=== PATIENT | female | born 1950 | race Caucasian/White ===

== ENCOUNTER 2016-07-06 07:23 | Day surgery (SDC) | payer MEDICARE, BC ==
[~2016-07-06 07:23] MED LIST: RINGERS SOLUTION,LACTATED 1,000 ML IV PRN
--- OUTSIDE RECORDS SUMMARY | 2016-07-06 07:27 | XMS REPORT | Continuity of Care Document ---
:1950 Author Organization [facility] ([facility]) Address [address] [place] [address] Phone [phone] Care Team Providers Name Role Phone Juanito Clayton Brandi Primary Care Provider [phone] Source Comments This disclosure is being made pursuant to the Care Everywhere program, applicable federal and state laws, and may not contain all informaitonavailable regarding this patient.[facility] ([facility]) Active Allergies and Adverse Reactions Not on File Current Medications Not on file Active Problems Not on file Social History Tobacco Use Types Packs/Day Years Used Date Never Assessed Plan of Care Health Maintenance Due Date Last Done Comments HCV Screening 1950 Hepatitis B Vaccine (1 of 3 - Primary Series) 1950 Tdap Vaccine 1960 Lipid Disorder Screening 08/30/1967 Td Vaccine 08/30/1967 Mammogram 1989 Colonoscopy 1999 Zoster Vaccine 2009 Osteoporosis Screening (DXA Bone Density) 2014 Pneumococcal Vaccine (1 of 2 - PCV13) 2014 Influenza Vaccine: Seasonal (#1) 12/28/2015 Results from Last 3 Months Not on file
[2016-07-06] MEDS ORDERED: RINGERS SOLUTION,LACTATED 1,000 ML IV ONE ×2 (08:13→09:12)
[2016-07-06 10:06] VITALS: BP 108/67
--- NOTE | 2016-07-06 19:38 | OR ---
Operative Report - Dictated Report Narrative: OPERATIVE REPORT DATE OF OPERATION: 07/06/2016 PREOPERATIVE DIAGNOSIS: History of colon polyp (type unknown) POSTOPERATIVE DIAGNOSIS: Diverticulosis OPERATION: Colonoscopy SURGEON: Ruperto Bailey MD ANESTHESIA: SOO Hills CRNA INDICATIONS FOR PROCEDURE: The patient is a 65-year-old female referred by Dr. Serrano. She had a colon polyp removed in approximately 2004 (type unknown) and she was advised a 5 year follow-up interval. She presents now for surveillance. There is no family history of colon cancer. The patient is currently asymptomatic. FINDINGS: Very capacious colon with scattered sigmoid diverticulosis. NARRATIVE OF PROCEDURE: The patient was identified in the holding area, and prior to the administration of anesthetic, a multidisciplinary timeout was observed. With the patient in the left lateral position and after the administration of intravenous sedation, the perineum was inspected. There was no evidence of pilonidal disease or skin breakdown. The external appearance of the anus was normal. Sphincter tone was good. The flexible fiberoptic colonoscope was inserted into the rectum which was insufflated with air. The rectal mucosa and submucosal vascular pattern appeared normal, the prep was seen to be complete. The scope was advanced through the sigmoid colon, which contained several large non-impacted noninflamed diverticular openings. The scope was advanced up the descending colon, and around the splenic flexure where the triangular haustral architecture of the transverse colon was seen. The scope was advanced across the transverse colon, around the hepatic flexure to the cecum, where the confluence of tenia and the ileocecal valve were identified. The mucosa at this level appeared normal. The scope was then slowly withdrawn in a circular fashion so that all aspects of colonic mucosa were inspected. The colon was very capacious in character and slightly redundant in course necessitating use of standard reduction maneuvers and external manual compression on the abdomen to reach the cecum. The haustral architecture appeared well preserved throughout with no evidence of external compression. The mucosa and submucosal vascular pattern appeared normal, specifically there was no gross evidence to suggest colitis or inflammatory bowel disease and no AV malformations were seen. The diverticulosis was mild in degree and confined primarily to the sigmoid colon. No polyps were encountered. The scope was gradually withdrawn to the level of the rectum. As much insufflated air as possible was removed. The scope was withdrawn from the patient and the procedure terminated. The patient tolerated the anesthetic and procedure well without complication and was transferred back to the ambulatory surgery area awake and in stable condition. The patient remained stable throughout a period of postoperative observation. She denied abdominal discomfort, was able to tolerate by mouth intake, and was up without assistance. I shared the operative findings with the patient and she was given copies of the photographs which appear in the medical record. She was discharged home with instructions not to engage in hazardous activity today , but may resume normal activity tomorrow, and advance diet as tolerated. She is to continue those medications as listed in the history and physical exam. RECOMMENDATION: She should have a digital rectal exam/cold-blooded determination of time of any pelvic exam with tentative colon surveillance in 10 years depending upon symptoms and findings Reviewed and electronically signed
== END 2016-07-06 07:24 | disposition home or self-care (01) ==
LOC: AMB 07:23
PROVIDERS: ATTEND Surgery
PROC: 0DJD8ZZ Inspection of Lower Intestinal Tract, Via Natural or Artificial Opening Endoscopic (ICD-10-PCS; principal; 2016-07-06 09:00)
DX: Z12.11 Encounter for screening for malignant neoplasm of colon (principal); K57.30 Diverticulosis of large intestine without perforation or abscess without bleeding; E78.5 Hyperlipidemia, unspecified; Z87.891 Personal history of nicotine dependence; Z68.41 Body mass index [BMI] 40.0-44.9, adult; Z09 Encounter for follow-up examination after completed treatment for conditions other than malignant neoplasm; Z86.010 Personal history of colon polyps

== ENCOUNTER 2019-12-11 08:26 | Inpatient (IN) ==
[~2019-12-11 08:26] MED LIST changes: +MORPHINE SULFATE 15 MG TABLET.SA PO PRN; -RINGERS SOLUTION,LACTATED 1,000 ML IV PRN; +ROPIVACAINE HCL/PF 100 MG, EPINEPHrine 0.2 MG, KETOROLAC TROMETHAMINE 30 MG in NORMAL S... IJ PRN; +TRANEXAMIC ACID 1,000 MG in NORMAL SALINE 100 ML IV PRN; +ceFAZolin SODIUM 1 GM VIAL IV PRN
[2019-12-11] MEDS: RINGER'S SOLUTION,LACTATED 1,000 ML IV PRN ×3 (09:01→12:46)
--- NOTE | 2019-12-11 09:34 | ANES ---
Anesthesia Pre Procedure Eval Vitals/Labs: Last Vital Signs Temp 36.1 C 12/11/19 08:38 Pulse 68 12/11/19 08:38 Resp 16 12/11/19 08:38 BP 139/70 12/11/19 08:38 Pulse Ox 94 12/11/19 08:38 HOME MEDICATIONS Calcium Carbonate [Caltrate 600] 600 mg PO DAILY 06/12/14 [Last Taken Unknown] Acetaminophen [Tylenol Arthritis] 650 mg PO Q8H PRN MDD 4 GM/DAY 06/21/16 [Last Taken Unknown] multivitamin 1 tab PO DAILY 12/27/17 [Last Taken Unknown] simvastatin 80 mg tablet 80 mg PO QPM #90 tab 03/11/19 [Last Taken Unknown] escitalopram oxalate 20 mg tablet 20 mg PO DAILY #90 tab 09/25/19 [Last Taken Unknown] levothyroxine 150 mcg tablet 150 mcg PO DAILY #90 tab 09/25/19 [Last Taken Unknown] Diclofenac Sodium 75 mg PO BID 12/11/19 [Last Taken Unknown] traZODone HCL [Desyrel] 50 mg PO DAILY 12/11/19 [Last Taken Unknown] Allergies/Adverse Reactions: Allergies Allergy/AdvReac Type Severity Reaction Status Date / Time Sulfa (Sulfonamide AdvReac Mild jittery Verified 12/11/19 08:44 Antibiotics) - Planned Procedure Planned Procedure: Left Total Knee Arthroplasty Medication List Reviewed:: Yes Allergies Verified: Yes Medical History (Last Reviewed 12/11/19 @ 09:32 by Carl Hills CRNA) Osteoarthritis of knee (Chronic) Shoulder pain, left (Acute) Onset Date: Unknown Contusion of rib on left side (Acute) Morbid obesity (Chronic) Anxiety and depression (Chronic) Hypothyroidism (Chronic) Hyperlipidemia (Chronic) Anemia Hyperlipidemia Malignant melanoma Onset Date: 1984 Of skin of other and unspecified parts of face Multinodular goiter Onset Date: 09/24/14 Osteoarthritis knees Thyroid neoplasm Onset Date: 10/22/14 Dr Benedict Surgical History (Last Reviewed 12/11/19 @ 09:32 by Carl Hills CRNA) S/P total knee replacement (Acute) History of carpal tunnel release Right History of total abdominal hysterectomy and bilateral salpingo-oophorectomy 1999 Hx of arthroscopic knee surgery Dr Clayton-rt knee. 03/13/[address] Bailey - diverticulosis. Recheck 10 yrs. 02/08/17 Hx of colonoscopy With biopsy. Dr Chung-hyperplastic polyp 07/16/08 Hx of thumb surgery Dr Andujar 01/01/13 Right thumb, transection of right terence finger. Hx of thyroidectomy Dr Benedict - total 12/09/14 Hx of tonsillectomy As a child Hx of total knee arthroplasty Dr Andujar - right 06/23/14 Family History (Last Reviewed 12/11/19 @ 09:32 by Carl Hills CRNA) Brother Hyperlipemia 2 with Blood Clots 2 w h/o blood clots COPD (chronic obstructive pulmonary disease) One with Father , Age 79 Heart disease Grandfather Diabetes Mother , Age 81 Cancer Ovarian Osteoporosis Fibromyalgia Sister Cancer Breast. Diagnosed age 51 Son Alive and well - Family Anesthesia History Family History:: no untoward family reactions to anesthesia - Airway/Neck/Teeth Within Normal Limits:: Yes Denture Type: Full upper, Full lower Neck Exam: full range of motion Mallampatti Score: 2 Thyromental (T-M) distance: > 6 cm Mandibulo Hyoid distance: > 3 cm - Respiratory Respiratory Physical: lungs clear Smoking Status: Former smoker Sleep Apnea currently treated: No Sleep Apnea by current assessment: No - Cardiovascular Tolerate Activity: Fair Heart Sounds: S1 & S2, Regular - Gastrointestinal NPO since: MN - Anesthesia Assessment and Plan ASA Class: PS, III Anesthesia Type Plan: Spinal - adductor canal block Planned difficult intubation/equipment available: No
[2019-12-11] MEDS ORDERED: HYDROmorphone HCL 2 MG/ML VIAL IV PRN (11:02)
[2019-12-11] MEDS ORDERED: PROCHLORPERAZINE EDISYLATE 5 MG/ML VIAL IV PRN (11:02)
[2019-12-11] MEDS ORDERED: NALOXONE HCL 0.4 MG/ML VIAL IV PRN (11:02)
[2019-12-11] MEDS ORDERED: ONDANSETRON HCL/PF 2 MG/ML VIAL IV PRN ×2 (11:02→13:09)
[2019-12-11] MEDS ORDERED: diphenhydrAMINE HCL 50 MG/ML VIAL IV PRN ×2 (11:02→13:09)
[2019-12-11] MEDS ORDERED: BUPIVACAINE HCL/EPINEPHRINE/PF 30 ML VIAL IJ ONE (11:04)
[2019-12-11] MEDS ORDERED: PROPOFOL VIAL IV ONE (11:05)
[2019-12-11] MEDS ORDERED: LIDOCAINE HCL 20 ML VIAL ONE (11:05)
[2019-12-11] MEDS ORDERED: MAG HYDROX/ALUMINUM HYD/SIMETH 30 ML UDC PO PRN (13:09)
[2019-12-11] MEDS ORDERED: MORPHINE SULFATE 2 MG/ML DISP.SYRIN IV PRN (13:09)
[2019-12-11] MEDS ORDERED: ZOLPIDEM TARTRATE 5 MG TABLET PO PRN (13:09)
[2019-12-11] MEDS ORDERED: MAGNESIUM HYDROXIDE 30 ML UDC PO PRN (13:09)
[2019-12-11] MEDS ORDERED: ACETAMINOPHEN 500 MG TABLET PO PRN (13:09)
--- NOTE | 2019-12-11 13:09 | OR ---
Operative Report - Dictated Report Narrative: Date: 12/11/2019 Preoperative diagnosis: Left knee degenerative joint disease. Postoperative diagnosis: Left knee degenerative joint disease. Procedure: Left total knee arthroplasty. Surgeon: Dawit Andujar M.D. Refrigeration Mechanic Helper: Milton Chavis PA-C (provided and essential set of skilled, educated hands that assisted with transfer, positioning, prepping, draping, manipulation, retraction, placement of jigs, injection, insertion of implants, irrigation, closure wounds, and dressings all of which could not be performed by the available surgical crew) Anesthesia: Spinal with regional block and local periarticular joint injection. Complications: None Specimens: Bone. Estimated blood loss: Minimal. Tourniquet time: 95 Minutes at 325 millimeters of mercury. Retained implants: Depuy Attune size 7 left lugged cemented posterior stabilized femoral component. Size 5 fixed-bearing cemented tibial platform. 7 by 6 millimeter posterior stabilized cross-linked tibial insert. 38 millimeter medialized patella button. Indications: Mrs. Flanagan is a 69-year-old female who has had longstanding left knee pain and arthrosis. This patient was followed in my clinic for period of time with significant complaints of left knee pain consistent with arthritic changes. She had failed conservative measures including, but not limited to, activity modification, passage of time, medications, and other conservative measures. Patient wished to proceed with surgical treatment. The risks, benefits, and alternatives were discussed in clinic. The risks of , blood clots, bleeding, infection, nerve/tendon blood vessel/ injury, malposition of components, intraoperative fracture, postoperative limited range of motion, persistent pain, failure of components, and need for additional procedures. Patient wished to proceed consent was obtained after answering all questions. Procedure: After marking the correct extremity on the floor, the patient was taken to the operating room. A timeout was performed. IV antibiotics consisting of Ancef were administered prior to the procedure. A regional followed by spinal anesthetic was induced by anesthesia, per my request, on the operative table with all bony prominences well-padded. Kilpatrick catheter was placed, and a bump was placed under the operative side buttock. SCDs and ROGELIO hose were utilized on the nonoperative leg. A well-padded tourniquet was applied to the operative thigh. The operative leg was then pre-scrubbed with alcohol, prepped, and draped in a standard sterile fashion. After exsanguinating the extremity with an Esmarch bandage, the tourniquet was inflated. After marking out the anterior knee for standard incision centered over the patella, the skin was incised and dissected down to the joint retinaculum. The joint retinaculum was marked out as well as the horizontal axis of the patella, and a standard medial parapatellar arthrotomy was then made. The most proximal aspect of the quadriceps tendon and the patella tendon insertion were protected from release. A partial synovectomy was performed as well as a resection of the infrapatellar fat pad. The distal femoral fat pad proximal to the trochlea was also resected using cautery. The soft tissues were elevated off the medial aspect of the proximal tibia using a Barth elevator ensuring that we did not transect the medial collateral ligament. Upon initial evaluation range of motion was approximately 0 degrees to 120 degrees of flexion. There were signs of advanced arthrosis in the medial and patellofemoral joints greater than lateral joint spaces. There were large marginal osteophytes which were removed with a rongeur. The knee was hyperflexed and the patella was tucked laterally. Protecting the surrounding soft tissues with Homans, an entry drill was placed down the femoral canal using Whitesides line for guidance into the entry point. The intramedullary femoral alignment adelso was utilized in order to cut the distal femur in 5 degrees of valgus resecting 10 millimeters of bone. Next the distal femur was sized to a size 7. A posterior referencing guide was utilized to place the distal femoral cutting block in 3 degrees of external rotation. This was pinned into place. The rotation was confirmed both visually and based on anatomic landmarks. The 4 in 1 cutting jig of the appropriate size was utilized in order to make all bony cuts. The tommy wing was used to ensure no notching. Retractors were utilized in order to protect surrounding soft tissues. This cut did not result in any excessive notching. We then cut the box centered over the distal femur. This allowed for resection of the anterior and posterior cruciate ligaments. I then turned my attention to the preparation of the tibia. Using an extra medullary tibial alignment adelso, 5 millimeters of bone was resected off the medial articular surface. This was made perpendicular to the mechanical axis of the joint with the alignment adelso centered over the ankle mortise. The alignment adelso was checked and was noted to be parallel to the me chanical axis, centered over the medial one third of the tibial tubercle, paralleling the anterior surface of the tibia. We then turned our attention to the remaining meniscus and soft tissues. These were removed while protecting the surrounding ligaments and soft tissues. The marginal osteophytes off the anterior, posterior, medial, lateral aspects of the femur and tibia were removed. The tibia was sized out to a size 5. Next the tibia was drilled and punched in an externally rotated position. Next the trial femur and a series of tibial inserts were utilized in order to allow for full extension and maximal flexion. It was found that a 6 millimeter insert gave the best range of motion and stability at multiple flexion points as well as at full extension there was less than 2 mm of gapping both medially and laterally. There is minimal anterior translation with the knee at 90 degrees of flexion and no signs of being able to dislocate the knee. The patella was then prepared. The initial thickness was 23 millimeters. This was reamed down to 13 millimeters parallel to the anterior surface of the patella. It was sized out to a size 38 medialized patella button. This was then drilled and trialed. Without any medial restraint the patella tracked appropriately and did not sublux or dislocate. At this point, it was felt these were the appropriate sized implants, and all tr ials were removed. The standard periarticular joint injection consisting of ropivacaine, Toradol, and epinephrine were injected into the periarticular joint tissues. The bony surfaces were thoroughly irrigated with a pulsatile-suction saline irrigation device. A bone plug from the prior resected anterior chamfer cut was placed into the drill hole at the distal femur. The bony surfaces were then dried in preparation for placement of the implants. The cement was vacuum mixed per the truck driver's offsider's instructions. The cement was placed on the dry bony surfaces and posterior aspect of the implants. The implants were impacted into place, removing all extruded cement. At this point anesthesia administered tranexamic acid per protocol intravenously. The knee was placed in extension with axial loading with the trial insert while the cement cured. Once the cement cured, all remaining extruded cement was removed. The knee was placed through a range of motion with the trial insert to ensure appropriate range of motion and stability. Final range of motion was approximately 0 to 120 degrees. The knee was again thoroughly irrigated with pulsatile saline lavage. The final polyethylene insert was then impacted into place ensuring no retained soft tissues. The remaining periarticular joint injection was injected. A medium Hemovac drain was placed exiting superior laterally. The knee was then placed over a triangle and the arthrotomy was closed with interrupted #1 Vicryl after thoroughly irrigating the joint. The deep and subcutaneous tissues were closed with interrupted 0 and 3-0 Vicryl respectively. Skin was closed with a running subcutaneous 3-0 Monocryl and Prineo Dermabond dressing. 4 x 4's, Sof-Rol, and a full leg Melvin wrap were applied. All sponge, needle, blade, and instrument counts were correct prior to closing the wounds. Postoperative condition: The patient was awoken and transferred to the postanesthesia care unit in stable condition. Plan is to be admitted to the inpatient medical/surgical floor postoperatively for 24 hours of IV antibiotics, physical therapy, occupational therapy, and medical comanagement. Patient will be weightbearing as tolerated with range of motion as tolerated. DVT prophylaxis will be with SCDs, ROGELIO hose, and pharmacological anticoagulation. Anticipated hospital stay is approximately 1-3 days.
--- NOTE | 2019-12-11 13:32 | ANES ---
Post Anesthesia Discharge - Transfer of Care Transfer of Care handoff given to nurse: Yes - Discharge from PACU Discharge from PACU when meets criteria: Yes - Discharge to ASU Discharge to ASU-no complications/pt stable: Yes
--- NOTE | 2019-12-11 13:34 | ANES ---
Anesthesia Procedure Note Procedure Note: ANESTHESIA PROCEDURE NOTE Date of Procedure: 12/11/2019. Time of procedure: 1105. Performed by: August Cohn CRNA Railway Track Plant Operator: None. Preprocedure diagnosis: Left knee degenerative joint disease. Post procedure diagnosis: Same. Procedure: Left ultrasound guided adductor canal block for postoperative analgesia. Indications: The patient is a 69-year-old female, requesting left ultrasound- guided abductor canal block for postoperative analgesia related to left total knee arthroplasty. Findings: See below. Details of the procedure: The tissue over the intended target site was cleansed with ChloraPrepand draped in a sterile fashion. 2 ml Lidocaine 1 % was infiltrated to the skin and subcutaneous tissue at the intended target site. Under sterile technique and ultrasound guidance a 20-gauge block needle was inserted through the left sartorius muscle to the saphenous nerve just anterior and medial to the superficial femoral artery and vein. 15 mL's of 0.5% bupivacaine was injected after negative aspiration for blood. Needle tip and spread of local anesthetic surrounding the saphenous nerve was observed throughout the injection with real time ultrasound visualization. The needle was then removed intact. No complications were noted. The images were retained in the Hospital medical database. EBL: Minimal. Fluids: N/A. Specimen: N/A. Post procedure condition: The patient tolerated the procedure well. No complications were noted. Thank you for this consultation. August Cohn CRNA
--- NOTE | 2019-12-11 13:40 | ANES ---
Post Anesthesia Assessment - Vital Signs Vitals: Last Vital Signs Temp 36.1 C 12/11/19 08:38 Pulse 68 12/11/19 08:38 Resp 16 12/11/19 08:38 BP 139/70 12/11/19 08:38 Pulse Ox 94 12/11/19 08:38 Airway Patency: Normal - Mental Status Level Of Consciousness: Awake - Pain Level Pain Score: 0 - N/V Assessment Nausea/Vomiting Presence: None Dehydration:: No
[2019-12-11] MEDS: DEXTROSE 5%-LACTATED RINGERS 1,000 ML IV PRN ×2 (14:03→21:40)
[2019-12-11] MEDS: KETOROLAC TROMETHAMINE 15 MG/ML VIAL IV SCH ×2 (14:08→20:16)
[2019-12-11] MEDS: ceFAZolin SODIUM 1 GM in DEXTROSE 5 % IN WATER 100 ML IV SCH ×4 (14:09→21:21)
[2019-12-11] MEDS: oxyCODONE HCL/ACETAMINOPHEN 1 TAB TABLET PO PRN ×2 (14:18→20:24)
[2019-12-11] MEDS: SIMVASTATIN 40 MG TABLET PO SCH (21:21)
[2019-12-11] MEDS: SENNOSIDES/DOCUSATE SODIUM 1 TAB TABLET PO SCH (21:21)
[2019-12-11] MEDS: MORPHINE SULFATE 15 MG TABLET.SA PO SCH (21:25)
[2019-12-12] MEDS: ceFAZolin SODIUM 1 GM in DEXTROSE 5 % IN WATER 100 ML IV SCH ×2 (03:03)
[2019-12-12] MEDS: KETOROLAC TROMETHAMINE 15 MG/ML VIAL IV SCH ×4 (03:04→20:21)
[2019-12-12] MEDS: oxyCODONE HCL/ACETAMINOPHEN 1 TAB TABLET PO PRN ×5 (03:11→20:20)
[2019-12-12 06:28] LABS: Hemoglobin 10.9 gm/dL (12.5-16.0); Mean Cell Volume 94.6 fl (78-100); Mean Corpuscular Hemoglobin 29.5 pg (27-31); Mean Corpuscular Hgb Conc 31.1 g/dl (32-36); Mean Platelet Volume 9.9 fl (8-12.5); Platelet Count 207 K/mm3 (150-450); Red Cell Distribution Width 13.2 % (11.5-14.0); White Blood Count 10.2 K/mm3 (4.0-10.5)
[2019-12-12 06:37] LABS: Anion Gap 5.8 mmol/L (6.8-13.8); BUN/Creatinine Ratio 15.7 (9.0-21.6); Calcium * 8.2 mg/dL (7.9-10.9); Carbon Dioxide 32.5 mmol/L (24-32.6); Potassium 4.3 mmol/L (3.4-4.6)
[2019-12-12] MEDS: LEVOTHYROXINE SODIUM 150 MCG TABLET PO SCH (07:28)
[2019-12-12] MEDS: traZODone HCL 50 MG TABLET PO SCH (09:13)
[2019-12-12] MEDS: CALCIUM CARBONATE 500 MG TAB.CHEW PO SCH (09:14)
[2019-12-12] MEDS: ESCITALOPRAM OXALATE 10 MG TAB PO SCH (09:14)
[2019-12-12] MEDS: MULTIVITAMINS 1 CAP CAPSULE PO SCH (09:14)
[2019-12-12] MEDS: MORPHINE SULFATE 15 MG TABLET.SA PO SCH ×3 (09:17→22:09)
[2019-12-12] MEDS: ENOXAPARIN SODIUM 40 MG/0.4 ML SYRG SC SCH (11:38)
--- NOTE | 2019-12-12 14:55 | PN ---
Subjective - Date and Time Seen Date: 12/12/19 Time: 14:52 Subjective Narrative: Dr. Lanza saw Marlene this morning and I am rechecking on her this afternoon. Patient reports her main concern is pain. She states that since getting up this morning her pain is been more bothersome when she tries to move around. She does not feel her pain is controlled enough to go home. She does not remember her other knee being this painful on postop day 1 but states maybe she forgot. She reports that she does well with therapy and did the stairs well. She is not having any nausea or vomiting associate with the pain medicine. She has no other complaints. Objective Objective Narrative: Patient currently sitting up in chair. She is not in any obvious distress. Bandages are clean dry and intact on left lower extremity. Her drain is out. She is neurovascular intact with plantar flexion dorsiflexion of her left ankle. - Vitals Vitals: Last Vital Signs Temp 36.8 C 12/12/19 07:05 Pulse 73 12/12/19 07:05 Resp 16 12/12/19 07:05 BP 129/75 12/12/19 07:05 Pulse Ox 95 12/12/19 07:05 - Abnormal Lab Findings Abnormal Lab Findings: Abnormal Lab Results 12/12/19 12/12/19 Range/Units 06:20 06:20 RBC 3.70 L (4.2-5.4) M/mm3 Hgb 10.9 L (12.5-16.0) gm/dL Hct 35.0 L (37.0-47.0) % MCHC 31.1 L (32-36) g/dl Anion Gap 5.8 L (6.8-13.8) mmol/L - Exam Constitutional: Present: Alert, Oriented x3, Cooperative, No distress Cauti Physician Documentation - Urinary Catheter Management Urethral (Kilpatrick) Date of Insertion: 12/11/19 Time of Insertion: 11:52 Date of Removal: 12/12/19 Time of Removal: 05:34 Assessment/Plan - Problems/Diagnosis (1) Status post total left knee replacement Problem: Acute Narrative: PT, anticoagulation, pain control. I will modify her MS Contin from 15 mg every 12 hours to 15 mg every 8 hours to see if that improves her pain control. Will reassess tomorrow morning and make changes accordingly. (2) Acute blood loss anemia Problem: Acute Narrative: Vital signs are stable and she is asymptomatic. Will continue to observe. (3) Morbid obesity Problem: Chronic (4) Anxiety and depression Problem: Chronic (5) Hypothyroidism Problem: Chronic Qualifiers: (6) Hyperlipidemia Problem: Chronic Qualifiers:
[2019-12-12] MEDS: SENNOSIDES/DOCUSATE SODIUM 1 TAB TABLET PO SCH (20:20)
[2019-12-12] MEDS: SIMVASTATIN 40 MG TABLET PO SCH (20:21)
[2019-12-13] MEDS: oxyCODONE HCL/ACETAMINOPHEN 1 TAB TABLET PO PRN ×4 (00:32→14:04)
[2019-12-13] MEDS: KETOROLAC TROMETHAMINE 15 MG/ML VIAL IV SCH ×2 (02:14→08:12)
[2019-12-13] MEDS: MORPHINE SULFATE 15 MG TABLET.SA PO SCH (07:17)
[2019-12-13] MEDS: LEVOTHYROXINE SODIUM 150 MCG TABLET PO SCH (07:17)
[2019-12-13] MEDS: ESCITALOPRAM OXALATE 10 MG TAB PO SCH (08:13)
[2019-12-13] MEDS: MULTIVITAMINS 1 CAP CAPSULE PO SCH (08:13)
[2019-12-13] MEDS: traZODone HCL 50 MG TABLET PO SCH (08:14)
[2019-12-13] MEDS: CALCIUM CARBONATE 500 MG TAB.CHEW PO SCH (08:14)
--- NOTE | 2019-12-13 09:51 | DS ---
(1) Status post total left knee replacement Problem: Acute (2) Acute blood loss anemia Problem: Acute (3) Morbid obesity Problem: Chronic (4) Anxiety and depression Problem: Chronic (5) Hypothyroidism Problem: Chronic Qualifiers: (6) Hyperlipidemia Problem: Chronic Qualifiers: Date of Discharge:: 12/13/19 Hospital Course: Mrs. Flanagan was admitted to the floor after undergoing left total knee arthroplasty. Tolerated this well. Was admitted to the floor postoperatively for 24 hours of IV antibiotics, pain control, medical comanagement, and occupational and physical therapy. OT and PT were consulted to assist with activities of daily living and ambulation. Was made weightbearing as tolerated with range of motion as tolerated. Pain was initially controlled with IV regimen. This was transitioned to oral once tolerating a by mouth intake. Was resumed on home diet and medications. Had a Kilpatrick catheter inserted and the operating room which was discontinued on postoperative day 1. A drain was placed intraoperatively into the knee which was discontinued on postoperative day 1. Lovenox SCD and ROGELIO hose were utilized for DVT prophylaxis. Vital signs remained stable to the hospital course. Serial labs were obtained which showed a final hemoglobin of 10.6 grams down from 12.6 g preoperatively. BMP was reviewed and was stable. Physical examination throughout the hospital course showed an extremity that had sensation that was intact to light touch, palpable pulses, a benign wound, motor intact to the toes, ankle, and knee. Knee range of motion was approximately 5 degrees to 75 degrees. Once an oral pain regimen was tolerated and physical therapy goals were met, it was felt that they were stable for discharge to home. Instructions: Continue with weightbearing as tolerated and range of motion as tolerated. It is OK to shower on the wound if it is not draining. If you note any drainage or for comfort you can cover with dry gauze and tape. Change every 2-3 days as needed. Continue with physical therapy. Resume home diet. Report any fever over 101.5 Fahrenheit, uncontrolled pain, increased drainage, foul odor of drainage, new or increased calf pain or shortness of breath, or any other significant complaints. A 325mg dialy aspirin will be started after finishing anticoagulation if not allergic. Continue with ROGELIO hose on the operative extremity until instructed otherwise. No driving until instructed otherwise. Follow up in approximately 10-14 days. Procedures Performed: see notes below List Procedures: Left total knee arthroplasty Results and Findings: Lab Pending Results 12/12/19 06:20: WBC 10.2, RBC 3.70 L, Hgb 10.9 L, Hct 35.0 L, MCV 94.6, MCH 29.5, MCHC 31.1 L, RDW 13.2, Plt Count 207, MPV 9.9 12/12/19 06:20: Sodium 139, Plasma Sodium 139, Potassium 4.3, Chloride 105, Carbon Dioxide 32.5, Anion Gap 5.8 L, BUN 13, Creatinine 0.83, Est GFR (Non-Af Amer) 72, BUN/Creatinine Ratio 15.7, Random Glucose 105, Calcium 8.2 Discharge Location: Home Disposition: Home self-care Condition: Good Discharge Activity: Activity as tolerated, Weight bearing - With wheeled walker Discharge Diet: Low fat/chol Referrals: Yosef Serrano MD [Primary Care Provider] - Dawit Andujar MD [Staff Physician] - 01/01/21 1:15 pm Problem Oriented Discharge Instructions to Patient/Family: Total Knee Replacement, Care After, [id number] Additional Patient Instructions (free text): Follow up Physical Therapy appointment at [facility] outpatient rehab on MondayDecember 12 at 12:30pm. Follow up Orthopedic office appointment is on January 01 at 1:15pm. Prescriptions (Any new or edited meds): Enoxaparin Sodium [Lovenox] 40 mg SC Q24H #5 disp.syrin Transmission Status: Pending to [facility] Morphine Sulfate [Ms Contin] 15 mg PO Q8H #30 tablet.sa Transmission Status: Sent to [facility] oxyCODONE HCL/ACETAMINOPHEN [Percocet 5 MG/325 MG] 2 tab PO Q4H PRN #56 tab PRN Reason: Moderate Pain (Pain Scale 4-6) Transmission Status: Sent to [facility] Sennosides/Docusate Sodium [Senokot-S] 2 tab PO HS #30 tab Transmission Status: Pending to [facility] Complete Home Medications List: Complete Home Medication List: Calcium Carbonate [Caltrate 600] 600 mg PO DAILY 06/12/14 multivitamin 1 tab PO DAILY 12/27/17 simvastatin 80 mg tablet 80 mg PO QPM #90 tab 03/11/19 escitalopram oxalate 20 mg tablet 20 mg PO DAILY #90 tab 09/25/19 levothyroxine 150 mcg tablet 150 mcg PO DAILY #90 tab 09/25/19 Diclofenac Sodium 75 mg PO BID 12/11/19 traZODone HCL [Desyrel] 50 mg PO DAILY 12/11/19 Enoxaparin Sodium [Lovenox] 40 mg SC Q24H #5 disp.syrin 12/13/19 Morphine Sulfate [Ms Contin] 15 mg PO Q8H #30 tablet.sa 12/13/19 Sennosides/Docusate Sodium [Senokot-S] 2 tab PO HS #30 tab 12/13/19 oxyCODONE HCL/ACETAMINOPHEN [Percocet 5 MG/325 MG] 2 tab PO Q4H PRN #56 tab 12/13/19 Amb Orders for Discharge: PT Evaluation and Treatment* Facility: [facility], Location: Rehabilitation Services
[2019-12-13] MEDS: ENOXAPARIN SODIUM 40 MG/0.4 ML SYRG SC SCH (12:40)
[2019-12-13 14:03] VITALS: BP 106/70
== END 2019-12-13 14:30 | disposition home or self-care (01) | DRG 470 ==
LOC: SUR 08:26 → MS 08:26
PROVIDERS: ADMIT Orthopaedic Surgery; ATTEND Orthopaedic Surgery
DX: F41.8 Other specified anxiety disorders; D62 Acute posthemorrhagic anemia; M17.12 Unilateral primary osteoarthritis, left knee; E03.9 Hypothyroidism, unspecified; E66.01 Morbid (severe) obesity due to excess calories; E78.5 Hyperlipidemia, unspecified; Z68.41 Body mass index [BMI] 40.0-44.9, adult
CPT/HCPCS: 36415; 73560; 80048; 85027; 97110; 97116; 97161; 97165; 97535